=== PATIENT | female | born 1995 | race Two or more races ===

== ENCOUNTER 2017-12-18 14:27 | Inpatient (IN) | payer OTHER ==
[~2017-12-18] VITALS: Ht 157.5 cm; Wt 40.8 kg
[2017-12-18 15:26] LABS: HEMATOCRIT 46.6 % (36.0-46.0); HEMOGLOBIN 15.3 G/DL (11.9-15.5); MCH 27.7 PG (29.0-34.0); MCHC 32.8 G/DL (30.0-36.0); MCV 84.3 FL (83-99); PLATELET COUNT 210 K/uL (156-360); RBC DIS.WIDTH-CV 15.7 % (11.8-14.6); RBC DIS.WIDTH-SD 48.2 % (39-53); RED BLOOD COUNT 5.53 M/uL (3.80-5.20); WHITE BLOOD COUNT 14.9 K/uL (4.1-10.2)
[2017-12-18 15:37] LABS: ALBUMIN 4.4 g/dL (3.2-4.8); CHLORIDE 100 mEq/L (99-109); POTASSIUM 4.5 mEq/L (3.7-5.4); SODIUM 133 mEq/L (136-147)
[2017-12-18 15:40] LABS: GLUCOSE 152 mg/dL (70-99); TOTAL PROTEIN 8.4 g/dL (6.4-8.3)
[2017-12-18 15:42] LABS: TOTAL BILIRUBIN 3.6 mg/dL (0.0-1.0)
[2017-12-18 15:43] LABS: ALKALINE PHOSPHATASE 206 IU/L (3-129); CREATININE 0.8 mg/dL (0.6-1.3)
[2017-12-18 15:44] LABS: GFR ESTIMATE (CALCULATED) > 59 mL/min/
[2017-12-18 15:45] LABS: AST (GOT) 321 IU/L (2-34); UREA NITROGEN (BUN) 4 mg/dL (9-23)
[2017-12-18 15:52] LABS: QUANTITATIVE HCG < 4.0 MIU/ML
[2017-12-18 16:16] LABS: LIPASE 1489 U/L (1.0-51.0)
[2017-12-18 16:32] LABS: ALT (GPT) 100 IU/L (3-49)
[2017-12-18 17:33] LABS: APPEARANCE CLOUDY ((CLEAR)); BILIRUBIN SMALL; BLOOD SMALL; COLOR AMBER ((YELLOW)); GLUCOSE (STRIP) 50; KETONES NEGATIVE; LEUKOCYTES TRACE; NITRITE NEGATIVE; PROTEIN (STRIP) 100
[2017-12-18 17:35] LABS: MAGNESIUM 2.6 mg/dL (1.3-2.7)
[2017-12-18 18:11] LABS: BENZODIAZEPINES, URINE SCREEN Negative (200 ng/mL)
[2017-12-18 18:42] LABS: RED BLOOD CELLS NONE SEEN /HPF (0-5); WHITE BLOOD CELLS 15-20 /HPF (0-5)
[2017-12-18 18:44] LABS: BACTERIA 1+ /HPF; EPITHELIAL CELLS 1+ /HPF; HYALINE CASTS 40-50 /LPF; MUCUS 1+ /LPF; UCUL ADDED? YES
[2017-12-18 20:48] VITALS: BP 146/98
[2017-12-18 23:15] VITALS: BP 121/77
[2017-12-19 04:01] VITALS: BP 114/82
[2017-12-19 06:20] LABS: HEMATOCRIT 36.7 % (36.0-46.0); MCH 26.6 PG (29.0-34.0); MCHC 32.4 G/DL (30.0-36.0); MCV 82.1 FL (83-99); PLATELET COUNT 157 K/uL (156-360); RBC DIS.WIDTH-CV 15.3 % (11.8-14.6); RBC DIS.WIDTH-SD 46.4 % (39-53); RED BLOOD COUNT 4.47 M/uL (3.80-5.20); WHITE BLOOD COUNT 11.7 K/uL (4.1-10.2)
[2017-12-19 06:21] LABS: HEMOGLOBIN 11.9 G/DL (11.9-15.5)
[2017-12-19 06:47] LABS: ALBUMIN 3.2 G/DL (3.2-4.8); ALKALINE PHOSPHATASE 103 IU/L (3-129); ALT (GPT) 50 IU/L (3-49); AST (GOT) 144 IU/L (2-34); CHLORIDE 105 MEQ/L (99-109); CREATININE 0.5 MG/DL (0.6-1.3); GFR ESTIMATE (CALCULATED) > 59 mL/min/; PHOSPHORUS 1.6 mg/dL (2.5-4.9); SODIUM 135 MEQ/L (136-147); TOTAL PROTEIN 5.6 G/DL (6.4-8.3); UREA NITROGEN (BUN) 5 mg/dL (9-23)
[2017-12-19 06:51] LABS: GLUCOSE 89 mg/dL (70-99)
[2017-12-19 08:06] VITALS: BP 128/79
[2017-12-19 11:55] VITALS: BP 124/79
[2017-12-19 16:30] VITALS: BP 117/75
[2017-12-19 20:35] VITALS: BP 109/73
[2017-12-19 23:49] VITALS: BP 121/81
[2017-12-20 04:10] VITALS: BP 118/74
[2017-12-20 05:59] LABS: INTER. NORMALIZED RATIO 1.4
[2017-12-20 06:15] LABS: BASOPHIL (%) 0.1 % (0-1); EOSINOPHIL (%) 0.1 % (0-5); HEMATOCRIT 29.5 % (36.0-46.0); IMMATURE GRANULOCYTE (%) 0.5 % (0.0-0.7); LYMPHOCYTE (%) 9.5 % (15-42); LYMPHOCYTE COUNT 0.8 K/uL (1.0-2.8); MCH 28.1 PG (29.0-34.0); MCHC 33.9 G/DL (30.0-36.0); MCV 82.9 FL (83-99); MONOCYTE (%) 7.6 % (3-12); MONOCYTE COUNT 0.7 K/uL (0-0.8); NEUTROPHIL (%) 82.2 % (45-76); NEUTROPHIL COUNT 7.2 K/uL (1.8-6.4); RBC DIS.WIDTH-CV 15.3 % (11.8-14.6); RBC DIS.WIDTH-SD 46.6 % (39-53); WHITE BLOOD COUNT 8.7 K/uL (4.1-10.2)
[2017-12-20 06:26] LABS: ALBUMIN 2.6 G/DL (3.2-4.8); ALKALINE PHOSPHATASE 89 IU/L (3-129); ALT (GPT) 31 IU/L (3-49); CHLORIDE 104 MEQ/L (99-109); CREATININE 0.4 MG/DL (0.6-1.3); GFR ESTIMATE (CALCULATED) > 59 mL/min/; GLUCOSE 69 mg/dL (70-99); LIPASE 258 U/L (1.0-51.0); POTASSIUM 3.3 MEQ/L (3.7-5.4); SODIUM 136 MEQ/L (136-147); TOTAL BILIRUBIN 1.8 MG/DL (0.0-1.0); UREA NITROGEN (BUN) 8 mg/dL (9-23)
[2017-12-20 06:29] LABS: AST (GOT) 78 IU/L (2-34); TOTAL PROTEIN 4.6 G/DL (6.4-8.3)
[2017-12-20 06:47] LABS: RED BLOOD COUNT 3.56 M/uL (3.80-5.20)
[2017-12-20 07:57] VITALS: BP 112/78
[2017-12-20 09:10] LABS: PLAT.SUFFICIENCY DECREASED
[2017-12-20 09:14] LABS: PLATELET COUNT 107 K/uL (156-360)
[2017-12-20 12:01] VITALS: BP 119/79
[2017-12-20 16:30] VITALS: BP 113/83
[2017-12-20 20:25] VITALS: BP 119/80
[2017-12-20 23:30] VITALS: BP 124/85
[2017-12-21 04:30] VITALS: BP 118/76
[2017-12-21 06:04] LABS: BASOPHIL (%) 0.1 % (0-1); EOSINOPHIL (%) 0.3 % (0-5); HEMATOCRIT 27.8 % (36.0-46.0); HEMOGLOBIN 9.2 G/DL (11.9-15.5); IMMATURE GRANULOCYTE (%) 0.3 % (0.0-0.7); LYMPHOCYTE (%) 11.5 % (15-42); LYMPHOCYTE COUNT 0.8 K/uL (1.0-2.8); MCH 27.4 PG (29.0-34.0); MCHC 33.1 G/DL (30.0-36.0); MCV 82.7 FL (83-99); MONOCYTE (%) 10.8 % (3-12); MONOCYTE COUNT 0.8 K/uL (0-0.8); NEUTROPHIL COUNT 5.6 K/uL (1.8-6.4); PLATELET COUNT 97 K/uL (156-360); RBC DIS.WIDTH-CV 14.9 % (11.8-14.6); RBC DIS.WIDTH-SD 45.4 % (39-53); RED BLOOD COUNT 3.36 M/uL (3.80-5.20); WHITE BLOOD COUNT 7.3 K/uL (4.1-10.2)
[2017-12-21 06:27] LABS: ALBUMIN 2.4 G/DL (3.2-4.8); ALKALINE PHOSPHATASE 92 IU/L (3-129); ALT (GPT) 29 IU/L (3-49); AST (GOT) 76 IU/L (2-34); CHLORIDE 104 MEQ/L (99-109); CREATININE 0.3 MG/DL (0.6-1.3); GFR ESTIMATE (CALCULATED) > 59 mL/min/; GLUCOSE 69 mg/dL (70-99); MAGNESIUM 1.4 mg/dl (1.3-2.7); PHOSPHORUS 1.2 mg/dL (2.5-4.9); POTASSIUM 3.1 MEQ/L (3.7-5.4); SODIUM 135 MEQ/L (136-147); TOTAL PROTEIN 4.4 G/DL (6.4-8.3); UREA NITROGEN (BUN) 3 mg/dL (9-23)
[2017-12-21 06:45] LABS: LIPASE 898 U/L (1.0-51.0)
[2017-12-21 08:03] VITALS: BP 110/76
[2017-12-21 11:52] VITALS: BP 111/69
[2017-12-23 13:43] LABS: Heparin Induced Plt Ab Weak Positive (Negative)
[2017-12-23 18:00] LABS: UFH SRA Result Negative (Negative)
== END 2017-12-21 14:43 | disposition left against medical advice (07) | DRG 439 ==
LOC: EME 14:27 → 3EAST 17:11 → EDOF 17:11 → ENRESERV 17:14 → 3EAST 20:45
PROVIDERS: Hospitalist; Internal Medicine; Internal Medicine Gastroenterology
DX: K85.21 Alcohol induced acute pancreatitis with uninfected necrosis (principal); K76.0 Fatty (change of) liver, not elsewhere classified; F12.10 Cannabis abuse, uncomplicated; F10.20 Alcohol dependence, uncomplicated; K70.11 Alcoholic hepatitis with ascites; N39.0 Urinary tract infection, site not specified; D69.6 Thrombocytopenia, unspecified; E83.39 Other disorders of phosphorus metabolism; R74.0 Nonspecific elevation of levels of transaminase and lactic acid dehydrogenase [LDH]; E87.6 Hypokalemia; F41.9 Anxiety disorder, unspecified; F32.9 Major depressive disorder, single episode, unspecified; F17.200 Nicotine dependence, unspecified, uncomplicated; R79.1 Abnormal coagulation profile
CPT/HCPCS: 74177; 76705; 80053; 80306 90; 81003; 83690; 83735; 84100; 84702; 85025; 85027; 85610; 86022 90; 87077; 87086; 87186; 99281; 99285; J1644; J2060; J2405; J2543; J3411; J3475; J3480; J7030; J7040; J7050; J7120

== ENCOUNTER 2018-04-21 09:31 | Emergency (ER) | payer OTHER ==
[~2018-04-21] VITALS: Ht 157.5 cm; Wt 35.5 kg
[2018-04-21 10:13] LABS: ALBUMIN 5.1 g/dL (3.2-4.8)
[2018-04-21 10:14] LABS: CHLORIDE 90 mEq/L (99-109); POTASSIUM 4.1 mEq/L (3.7-5.4); SODIUM 131 mEq/L (136-147)
[2018-04-21 10:16] LABS: GLUCOSE 111 mg/dL (70-99); TOTAL PROTEIN 9.5 g/dL (6.4-8.3)
[2018-04-21 10:18] LABS: TOTAL BILIRUBIN 1.9 mg/dL (0.0-1.0)
[2018-04-21 10:19] LABS: ALKALINE PHOSPHATASE 160 IU/L (3-129)
[2018-04-21 10:20] LABS: BASOPHIL (%) 0.3 % (0-1); CREATININE 0.9 mg/dL (0.6-1.3); EOSINOPHIL (%) 0.1 % (0-5); GFR ESTIMATE (CALCULATED) > 59 mL/min/; HEMATOCRIT 39.9 % (36.0-46.0); HEMOGLOBIN 13.1 G/DL (11.9-15.5); IMMATURE GRANULOCYTE (%) 0.9 % (0.0-0.7); LYMPHOCYTE (%) 3.7 % (15-42); LYMPHOCYTE COUNT 0.6 K/uL (1.0-2.8); MCH 24.2 PG (29.0-34.0); MCHC 32.8 G/DL (30.0-36.0); MCV 73.6 FL (83-99); MONOCYTE (%) 5.8 % (3-12); MONOCYTE COUNT 0.9 K/uL (0-0.8); NEUTROPHIL (%) 89.2 % (45-76); NEUTROPHIL COUNT 13.6 K/uL (1.8-6.4); PLATELET COUNT 266 K/uL (156-360); RBC DIS.WIDTH-CV 19.1 % (11.8-14.6); RBC DIS.WIDTH-SD 49.6 % (39-53); RED BLOOD COUNT 5.42 M/uL (3.80-5.20); WHITE BLOOD COUNT 15.2 K/uL (4.1-10.2)
[2018-04-21 10:21] LABS: AST (GOT) 272 IU/L (2-34); UREA NITROGEN (BUN) 18 mg/dL (9-23)
[2018-04-21 10:22] LABS: ALT (GPT) 174 IU/L (3-49)
[2018-04-21 10:23] LABS: LIPASE 171 U/L (1.0-51.0)
[2018-04-21 10:29] LABS: QUANTITATIVE HCG < 4.0 MIU/ML
[2018-04-21] MEDS ORDERED: ZOFRAN4 MG PO (12:38)
[2018-04-21] MEDS ORDERED: PERCOCET 5/31 TABLET PO (12:38)
[2018-04-21] MEDS ORDERED: ULTRAM50 MG PO (12:51)
[2018-04-21 12:58] VITALS: BP 123/76
== END 2018-04-21 13:07 | disposition home or self-care (01) ==
LOC: EME 09:31
PROVIDERS: Emergency Medicine
DX: R10.10 Upper abdominal pain, unspecified (principal); K85.90 Acute pancreatitis without necrosis or infection, unspecified; R79.89 Other specified abnormal findings of blood chemistry; F10.20 Alcohol dependence, uncomplicated; Z86.73 Personal history of transient ischemic attack (TIA), and cerebral infarction without residual deficits; Z87.891 Personal history of nicotine dependence
CPT/HCPCS: 74177; 80053; 83690; 84702; 85025; 99281; 99285; J2270; J2405; J7030